=== PATIENT | male | born 1985 | race Two or more races ===

== ENCOUNTER 2021-01-26 12:07 | Inpatient (IN) | payer OTHER ==
[2021-01-26 12:39] VITALS: BMI 27.8
[2021-01-26] MEDS ORDERED: IBUPROFEN 400 MG TABLET (FP) PO PRN (13:05)
[2021-01-26] MEDS ORDERED: LORazepam 1 MG TABLET PO PRN (13:05)
[2021-01-26] MEDS ORDERED: MAG HYDROX/AL HYDROX/SIMETH 30 ML UNIT-DOSE CUP PO PRN (13:05)
[2021-01-26] MEDS ORDERED: MENTHOL/PHENOL 1 EACH UD MM PRN (13:05)
[2021-01-26] MEDS ORDERED: ONDANSETRON *ODT* 4 MG TABLET SL PRN (13:05)
[2021-01-26] MEDS ORDERED: LORazepam 2 MG TABLET PO ONE (13:05)
[2021-01-26] MEDS ORDERED: ACETAMINOPHEN 325 MG TABLET (FP) PO PRN ×2 (13:05)
[2021-01-26] MEDS ORDERED: MAGNESIUM CITRATE 300 ML BOTTLE PO PRN (13:05)
[2021-01-26] MEDS ORDERED: MAGNESIUM HYDROX 2400MG/30ML ORAL SUSPENSION 30 ML CUP PO PRN (13:05)
[2021-01-26] MEDS: hydrOXYzine PAMOATE 25 MG CAPSULE (FP) PO SCH ×3 (14:13→22:17)
[2021-01-26] MEDS: PRENATAL VITAMINS W/ FOLIC ACID TABLET (FP) PO SCH (14:14)
[2021-01-26] MEDS: BISMUTH SUBSALICYLATE 262 MG/15 ML BTL PO PRN (14:16)
[2021-01-26] MEDS ORDERED: PETROLATUM, WHITE 30 GM TUBE TP PRN (14:53)
[2021-01-26] MEDS ORDERED: HYDROCORTISONE 0.5% TOPICAL CREAM 30 GM TUBE TP PRN (14:57)
[2021-01-26 15:54] LABS: HEMOGLOBIN 15.6 GM/dL (11.7-16.9); MCH 30.5 pg (25.7-33.7); MCHC 34.7 g/dl (32.0-35.9); MEAN PLT VOLUME 8.1 fl (7.5-11.1); PLATELET COUNT 290 10^3/uL (134-434); RBC 5.12 M/mm3 (4.00-5.60); RDW 13.4 % (11.9-15.9); WHITE BLOOD COUNT 9.8 K/mm3 (4.0-10.0)
[2021-01-26 15:57] LABS: ALBUMIN 4.1 g/dl (3.4-5.0); BLOOD UREA NITROGEN 7.4 mg/dL (7-18); CALCIUM 9.2 mg/dL (8.5-10.1)
[2021-01-26 16:00] LABS: CREATININE 0.9 mg/dL (0.55-1.3)
[2021-01-26 16:01] LABS: BILIRUBIN,TOTAL 0.3 mg/dL (0.2-1)
[2021-01-26 16:02] LABS: TOT PROT 7.8 g/dl (6.4-8.2)
[2021-01-26] MEDS: NICOTINE POLACRILEX 2 MG GUM BUC PRN ×4 (16:11→22:21)
[2021-01-26] MEDS: LORazepam 2 MG TABLET PO SCH ×2 (18:05→22:17)
[2021-01-26] MEDS: MELATONIN 5 MG TABLETS PO SCH (22:17)
[2021-01-26] MEDS: THIAMINE HCL 100 MG TABLET (FP) PO SCH (22:17)
[2021-01-26] MEDS: METHOCARBAMOL 500 MG TABLET PO PRN (22:19)
[2021-01-27] MEDS: hydrOXYzine PAMOATE 25 MG CAPSULE (FP) PO SCH ×5 (05:58→22:04)
[2021-01-27] MEDS: LORazepam 2 MG TABLET PO SCH ×4 (05:58→22:07)
[2021-01-27] MEDS: PRENATAL VITAMINS W/ FOLIC ACID TABLET (FP) PO SCH (10:20)
[2021-01-27] MEDS: NICOTINE POLACRILEX 2 MG GUM BUC PRN ×2 (10:21→15:28)
[2021-01-27] MEDS: NICOTINE 10 MG CARTRIDGE (INHALER) IH PRN ×2 (10:22→17:53)
[2021-01-27] MEDS: ESCITALOPRAM OXALATE 10 MG TABLET PO SCH (14:08)
[2021-01-27] MEDS: THIAMINE HCL 100 MG TABLET (FP) PO SCH (22:03)
[2021-01-27] MEDS: MELATONIN 5 MG TABLETS PO SCH (22:05)
[2021-01-28] MEDS: LORazepam 1 MG TABLET PO SCH ×4 (06:18→22:33)
[2021-01-28] MEDS: hydrOXYzine PAMOATE 25 MG CAPSULE (FP) PO SCH ×5 (06:19→22:34)
[2021-01-28] MEDS: NICOTINE 10 MG CARTRIDGE (INHALER) IH PRN ×2 (06:20→17:46)
[2021-01-28] MEDS: PRENATAL VITAMINS W/ FOLIC ACID TABLET (FP) PO SCH (10:13)
[2021-01-28] MEDS: ESCITALOPRAM OXALATE 10 MG TABLET PO SCH (10:13)
[2021-01-28] MEDS: BISMUTH SUBSALICYLATE 262 MG/15 ML BTL PO PRN (12:58)
[2021-01-28] MEDS: METHOCARBAMOL 500 MG TABLET PO PRN (17:45)
[2021-01-28] MEDS: THIAMINE HCL 100 MG TABLET (FP) PO SCH (22:34)
[2021-01-28] MEDS: MELATONIN 5 MG TABLETS PO SCH (22:34)
[2021-01-29] MEDS ORDERED: LORazepam 0.5 MG TABLET PO PRN
[2021-01-29] MEDS: hydrOXYzine PAMOATE 25 MG CAPSULE (FP) PO SCH ×2 (05:41→09:30)
[2021-01-29] MEDS: LORazepam 0.5 MG TABLET PO SCH ×2 (05:42→10:17)
[2021-01-29] MEDS: METHOCARBAMOL 500 MG TABLET PO PRN (05:42)
[2021-01-29] MEDS: ESCITALOPRAM OXALATE 10 MG TABLET PO SCH (09:30)
[2021-01-29] MEDS: PRENATAL VITAMINS W/ FOLIC ACID TABLET (FP) PO SCH (09:30)
[2021-01-29 09:42] VITALS: BP 141/93; PULSE 108; TEMP 96.9
[2021-01-30] MEDS ORDERED: LORazepam 0.5 MG TABLET PO ONE (05:00)
== END 2021-01-29 09:55 | disposition home or self-care (01) | DRG 775 ==
LOC: YASAS 12:07 → Y3N 13:27
PROVIDERS: ADMIT Allergy & Immunology; ATTEND Allergy & Immunology
PROC: HZ2ZZZZ Detoxification Services for Substance Abuse Treatment (ICD-10-PCS; principal; 2021-01-26)
DX: F10.230 Alcohol dependence with withdrawal, uncomplicated (principal); F10.280 Alcohol dependence with alcohol-induced anxiety disorder; F10.282 Alcohol dependence with alcohol-induced sleep disorder; F17.210 Nicotine dependence, cigarettes, uncomplicated; F41.9 Anxiety disorder, unspecified; F41.1 Generalized anxiety disorder; Z62.810 Personal history of physical and sexual abuse in childhood
CPT/HCPCS: 36415; 80053; 85027; 86780; 93005; 93010; C9803; U0003; U0005